=== PATIENT | female | born 1970 | race Caucasian/White ===

== ENCOUNTER 2016-09-01 02:53 | Emergency (ER) | payer OTHER ==
[~2016-09-01] VITALS: Ht 167.6 cm; Wt 96.8 kg
[~2016-09-01 02:53] MED LIST: ACET-1256 PO; ALBU1AER9 INH; IBUP-1050 PO; IBUP1CAP PO
[2016-09-01 02:56] VITALS: TEMP 36.7; Ht 167.6 cm; Wt 96.8 kg
[2016-09-01] MEDS ORDERED: FLEXERIL HOME PACK 10 MG VIAL PO ONE (03:15)
[2016-09-01] MEDS ORDERED: CYCL10TA6 PO (03:27)
--- NOTE | 2016-09-01 03:27 | EMERGENCY ROOM VISIT NOTE ---
ED Visit Note First contact with patient: 02:59 CHIEF COMPLAINT: Low back pain HISTORY OF PRESENT ILLNESS: This 45-year-old female patient presents to the emergency department in the door complaining of pain in the low back which began 3 days ago. The pain was gradual in onset, is now constant and worse with movement. The patient states she has had pain in the right lower back with radiation into the right hip which is worse when she lays down at night. She is unable to lay on her right side due to the pain. The patient notes the pain as sharp and a 4/10. The patient has taken Tylenol and Advil without relief of the pain. The patient denies any loss of control of their bowel or bladder functions. There has been no leg numbness or weakness, and no change in sensation. No nausea or vomiting or abdominal pain. No chest pain or shortness of breath. She denies urinary symptoms. She has no history of back issues. She states that she was unable to sleep tonight, so she came here. REVIEW OF SYSTEMS: A review of systems was performed with positives and pertinent negatives listed in the history of present illness. All other systems were reviewed and are negative. ALLERGIES: Allergies to unknown antibiotics MEDICATIONS: See med list PMH: No significant past medical history. SOCIAL HISTORY: The patient lives locally with family. Nonsmoker, admits to occasional alcohol use. PHYSICAL EXAM: VITALS: Vitals are noted on the nurse's note and reviewed by myself. Vital signs stable. GENERAL: This is a 45-year-old female, in no acute distress, nondiaphoretic, well-developed well-nourished. SKIN: The skin was without rashes, erythema, edema, or bruising. Capillary refill less than 2 seconds. NECK: Supple without nuchal rigidity. No cervical spine tenderness. No paraspinous muscle tenderness. HEART: Regular rate and rhythm without murmurs gallops or rubs. LUNGS: Clear to auscultation bilaterally without wheezes, rales or rhonchi. ABDOMEN: Positive bowel sounds x 4. Normal tympanic percussion. Soft, nontender, without masses or organomegaly. Carson sign negative. MUSCULOSKELETAL: No muscle atrophy, erythema, or edema noted of the back. There is no tenderness over the lumbar spinous processes. There is tenderness over the right lumbar paraspinous muscles. There is no tenderness over the thoracic spine or paraspinous muscles. There are no muscle spasms present. The patient has full range of motion of the spine. Negative straight leg raise test. NEURO: Patient was alert and oriented to person place and time. Normal sensation to light and sharp touch. Deep tendon reflexes 2+ in the lower extremities. Dorsalis pedis pulse 2+ bilaterally. Strength 5/5 and equal in the bilateral lower extremities. EMERGENCY DEPARTMENT COURSE: Patient was evaluated as above. Her pain appears to be musculoskeletal. Conservative measures were discussed. She was instructed to start a course of anti-inflammatories. She was given a prescription at home pack of Flexeril. She was instructed to follow-up with her primary care provider as soon as she is able. She verbalized understanding of my assessment and treatment plan and was discharged home in good condition. DIAGNOSIS: Right lumbar back pain Problem List Medical Problems: (1) Asthma Status: Chronic Surgical Problems: (1) Previous section Status: Resolved (2) Tubal Status: Resolved Current/Historical Medications Scheduled Acetaminophen (Tylenol), 1,000 MG PO PRN UD Albuterol (Proair Hfa), 1-2 PUFFS INH Q4-6HR PRN Cyclobenzaprine Hcl (Flexeril), 10 MG PO TID Ibuprofen (Advil), 400 MG PO PRN UD Ibuprofen (Midol), 2 CAP PO PRN Allergies Uncoded Allergies: UNKNOWN ANTIBIOTIC X2 (Adverse Reaction, Unknown, PT does not recall name of antibiotics., 02/04/11) Vital Signs Date Time Temp Pulse Resp B/P Pulse Ox O2 Delivery O2 Flow Rate FiO2 09/01/16 03:35 98 20 127/84 95 09/01/16 02:56 36.7 88 18 122/79 99 Room Air Medications Administered Medications (Trade) Dose Ordered Sig/Bruno Route Start Time Stop Time Status Last Admin Dose Admin Cyclobenzaprine HCl (FLEXERIL 10MG Home Pack) 1 homepack UD ONCE PO 09/01/16 03:15 09/01/16 03:16 DC 09/01/16 03:33 1 HOMEPACK Departure Information Impression Primary Impression: Lumbar back pain Dispostion Home / Self-Care Condition GOOD Prescriptions Cyclobenzaprine Hcl (FLEXERIL) 10 Mg Tab 10 MG PO TID for 5 Days, #15 TAB Prov: Alana Caicedo ., ESTELA 09/01/16 Referrals Juanjo Valle M.D. (PCP) Patient Instructions [facility] Additional Instructions You have been treated in the Emergency Department for Back Pain. ou have been prescribed Flexeril (cyclobenzaprine) 1-2 tabs orally, three times per day. Do NOT exceed 30 mg (6 tabs) per day. Take your first dose at bedtime as it can make you drowsy. Always take all medications as prescribed. For pain control, you can use the following [id number] medicines (if >12 yo): - Regular strength (325mg/tab) Tylenol (acetaminophen) 2 tabs every 4-6 hours as needed. Do not exceed 12 tablets in a 24 hour period. Avoid taking more than 4 grams (4000 mg) of Tylenol per day. This includes any other sources of acetaminophen you may take on a regular basis. - Regular strength (200 mg/tab) Advil (ibuprofen) 1-2 tabs every 4-6 hours as needed. Do not exceed a dose of 3200 mg per day. If this is an acute injury, ice can be applied to the area of pain for the first 3 days to help decrease pain and inflammation. After the first 3 days, a heating pad can be used over the area for continued soothing relief. You should schedule a follow-up appointment in 2-3 days with your Primary Care Provider for further evaluation and treatment of your back pain. Return to the Emergency Department if your current symptoms worsen despite treatment course outlined above, or if you develop any of the following symptoms : intractable pain despite aforementioned treatment course, loss of control of your bowel or bladder, numbness or tingling in your groin, or development of a fever. Problem Qualifiers Primary Impression: Lumbar back pain Chronicity: acute Back pain laterality: right Sciatica presence: without sciatica Qualified Codes: M54.5 - Low back pain
[2016-09-01 03:35] VITALS: BP 127/84; PULSE 98; O2SAT 95
== END 2016-09-01 03:36 | disposition home or self-care (01) ==
LOC: C.EDB 02:54
DX: M54.5 Low back pain (principal); J45.909 Unspecified asthma, uncomplicated; Z98.51 Tubal ligation status; Z98.891 History of uterine scar from previous surgery

== ENCOUNTER → 2017-05-08 | Outpatient (CLI) | payer OTHER ==
--- NOTE | 2017-05-08 16:03 | DIAGNOSTIC IMAGING REPORT ---
THORACIC SPINE 3 VIEWS ROUTINE HISTORY: Pain. Neuropathy. Numbness and tingling in left arm COMPARISON: None. FINDINGS: There is no fracture. Mild scoliosis minimal degenerative disc change IMPRESSION: Minimal degenerative change. No acute process. The above report was generated using voice recognition software. It may contain grammatical, syntax or spelling errors. Electronically signed by: Jeb John M.D. 05/08/2017 4:02 PM Dictated Date/Time: 05/08/2017 4:01 PM
--- NOTE | 2017-05-08 16:05 | DIAGNOSTIC IMAGING REPORT ---
L-SPINE MIN 4 VIEWS ROUTINE HISTORY: Pain. Neuropathy. Numbness and tingling in left arm COMPARISON: None. FINDINGS: There is no fracture. No subluxation. Moderate degenerative disc change L1-L2 and to a lesser extent L2-L3. Calcification to the right of the L4-L5 disc space considered nonspecific. IMPRESSION: No fracture or subluxation within the lumbar spine. Minimal degenerative disc change. Several nonspecific right paravertebral calcifications. The above report was generated using voice recognition software. It may contain grammatical, syntax or spelling errors. Electronically signed by: Jeb John M.D. 05/08/2017 4:03 PM Dictated Date/Time: 05/08/2017 4:02 PM
--- NOTE | 2017-05-08 16:48 | DIAGNOSTIC IMAGING REPORT ---
CERVICAL SPINE 2 OR 3 VIEWS HISTORY: 46 years-old Female Numbness and tingling in left arm acute numbness and tingling of the left arm COMPARISON: Thoracic spine radiographs of same day TECHNIQUE: 3 views of the cervical spine FINDINGS: The seventh vertebral segment is partially obscured on lateral view secondary to overlying soft tissue. There is mild intervertebral disc space narrowing with endplate spurring at C6-C7. Mild multilevel uncovertebral spurring is seen at several levels with minimal facet arthrosis of the lower cervical spine. Slight reversal of the normal cervical lordosis. No acute fracture or subluxation. No prevertebral soft tissue swelling. IMPRESSION: 1. No acute fracture or subluxation. 2. Slight reversal of the normal cervical lordosis may be secondary to positioning or paraspinal muscle spasm. 3. Mild intervertebral disc space narrowing with endplate spurring at C6-C7. The above report was generated using voice recognition software. It may contain grammatical, syntax or spelling errors. Electronically signed by: Sulaiman Jaramillo M.D. 05/08/2017 4:46 PM Dictated Date/Time: 05/08/2017 4:44 PM
== END | disposition home or self-care (01) ==
LOC: C.RADPV 15:18
PROVIDERS: ATTEND Family Medicine
DX: R20.0 Anesthesia of skin (principal); R20.2 Paresthesia of skin

== ENCOUNTER → 2017-07-12 | Outpatient (CLI) | payer OTHER ==
--- NOTE | 2017-07-12 16:34 | DIAGNOSTIC IMAGING REPORT ---
CT OF THE CERVICAL SPINE WITHOUT CONTRAST CLINICAL HISTORY: Cervical radiculopathy at C7. COMPARISON STUDY: Cervical spine radiographs May 08, 2017. TECHNIQUE: Helical axial images of the cervical spine were obtained without IV contrast. Sagittal and coronal reconstructions were viewed. A dose lowering technique was utilized adhering to the principles of ALARA. FINDINGS: Reversal of the normal cervical lordosis is unchanged since exam of May 08, 2017. There is no acute fracture or suspicious lesion within the cervical spine by CT. There is no prevertebral edema. Lung apices are clear. Central canal and neural foramen are suboptimally assessed by CT. There is moderate disc space narrowing at C6-C7. Posterior disc osteophyte complex is noted at the C6-C7 level. The central canal suboptimally assessed by CT but this likely results in mild central canal stenosis. There is no evidence for severe central canal stenosis within the cervical spine by CT. The neural foramen are suboptimally assessed on this exam. However, there is suspected severe left neural foraminal stenosis at C6-C7 due to uncovertebral hypertrophy, disc osteophyte complex and mild facet arthrosis. There is no evidence for additional sites of severe neural foraminal stenosis. IMPRESSION: 1. No acute cervical spine fracture or subluxation. 2. Moderate disc space narrowing and osteophytosis at C6-C7 with a posterior disc osteophyte complex at this level that likely results in mild narrowing of the central canal. 3. Suspected severe narrowing of the left C6-C7 neural foramen due to uncovertebral hypertrophy, disc osteophyte complex and mild facet arthrosis. This could be correlated with left C7 radiculopathy. Electronically signed by: Bryant Gonsalves M.D. 07/12/2017 4:33 PM Dictated Date/Time: 07/12/2017 4:27 PM
== END | disposition home or self-care (01) ==
LOC: C.CTS 15:47
PROVIDERS: ATTEND Physician Assistant
DX: M54.12 Radiculopathy, cervical region (principal)